=== PATIENT | female | born 1965 | race African-American/Black ===

== ENCOUNTER → 2020-08-12 | Outpatient (CLI) | payer OTHER ==
[~2020-08-12] MED LIST: CATAFLAN PO
== END | disposition home or self-care (01) ==
LOC: RAD 12:04
PROVIDERS: ATTEND Orthopaedic Surgery
DX: R07.89 Other chest pain (principal)

== ENCOUNTER 2020-08-15 11:23 | Outpatient (CLI) | payer OTHER | END 2020-08-15 15:00 | disposition home or self-care (01) | LOC: LAB 11:23 | PROVIDERS: ATTEND Orthopaedic Surgery | DX: M25.562 Pain in left knee (principal); D64.89 Other specified anemias; E88.89 Other specified metabolic disorders; D68.8 Other specified coagulation defects; N39.0 Urinary tract infection, site not specified; Z22.322 Carrier or suspected carrier of Methicillin resistant Staphylococcus aureus; I49.8 Other specified cardiac arrhythmias; I10 Essential (primary) hypertension ==

== ENCOUNTER 2021-02-10 12:10 | Outpatient (CLI) | payer OTHER | END 2021-02-10 15:00 | disposition home or self-care (01) | LOC: LAB 12:10 | PROVIDERS: ATTEND Orthopaedic Surgery | DX: D64.89 Other specified anemias (principal); E88.89 Other specified metabolic disorders; D68.8 Other specified coagulation defects; N39.0 Urinary tract infection, site not specified; Z22.322 Carrier or suspected carrier of Methicillin resistant Staphylococcus aureus; Z03.818 Encounter for observation for suspected exposure to other biological agents ruled out; I10 Essential (primary) hypertension; I49.8 Other specified cardiac arrhythmias; Z76.89 Persons encountering health services in other specified circumstances; M25.552 Pain in left hip; M17.0 Bilateral primary osteoarthritis of knee ==

== ENCOUNTER 2021-08-08 14:40 | Outpatient (CLI) | payer OTHER | END 2021-08-08 14:49 | disposition home or self-care (01) | LOC: MRI 14:40 | PROVIDERS: ATTEND Orthopaedic Surgery | DX: M17.11 Unilateral primary osteoarthritis, right knee (principal); M25.561 Pain in right knee | CPT/HCPCS: 73721 ==

== ENCOUNTER 2023-01-18 11:11 | Outpatient (CLI) | payer OTHER | END 2023-01-18 11:18 | disposition home or self-care (01) | LOC: LAB 11:11 | PROVIDERS: ATTEND Orthopaedic Surgery | DX: D64.89 Other specified anemias (principal); E88.89 Other specified metabolic disorders; D68.8 Other specified coagulation defects; N39.0 Urinary tract infection, site not specified; A49.02 Methicillin resistant Staphylococcus aureus infection, unspecified site; Z76.89 Persons encountering health services in other specified circumstances; I49.9 Cardiac arrhythmia, unspecified; I10 Essential (primary) hypertension ==